=== PATIENT | female | born 1995 | race American Indian/Alaskan Native ===

== ENCOUNTER 2019-01-09 19:02 | Emergency (ER) | payer OTHER ==
--- NOTE | 2019-01-09 19:32 | Event Note ---
ED Screening Note Date of service: 01/09/19 Time: 19:29 ED Screening Note: Patient here reports injury to left 2,3 and 4th finger. Reports larger cut is on middle finger. TD unknown. Injured finger while opening a can. RXT: left middle fingle with deep wound distally and 2nd and 4th finger bowen perficial wound. TTP. Sml bleding. Pulses 2+. normal color and sensation. This initial assessment/diagnostic orders/clinical plan/treatment(s) is/are subject to change based on patients health status, clinical progression and re- assessment by fellow clinical providers in the ED. Further treatment and workup at subsequent clinical providers discretion. Patient/guardian urged not to elope from the ED as their condition may be serious if not clinically assessed and managed. Initial orders include: TD
[2019-01-09] MEDS ORDERED: TETANUS,DIPH,PERTUSS(ACELL) VACCINE 0.5 ML SYRINGE IM ONE (19:34)
--- NOTE | 2019-01-09 20:19 | Emergency Department Report ---
- General Chief Complaint: Laceration/Recheck/Suture Stated Complaint: FINGERS CUT/LAC Time Seen by Provider: 01/09/19 19:28 Source: patient Mode of arrival: Ambulatory Limitations: No Limitations - History of Present Illness Initial Comments: Patient is a 23-year-old female presents emergency room with complaints of a laceration to the left middle and left ring finger that occurred just prior to arrival. She states that she was opening metal can and got cut by the edge of the can. She is unsure of her last tetanus immunization. She is able to move the fingers without difficulty. She denies any numbness or weakness. Patient denies any past medical history or allergies medications. - Related Data Previous Rx's Medication Instructions Recorded Last Taken Type cephALEXin [Keflex] 500 mg PO Q6HR 7 Days #28 capsule 01/09/19 Unknown Rx Allergies Allergy/AdvReac Type Severity Reaction Status Date / Time No Known Allergies Allergy Unverified 01/09/19 19:31 ED Review of Systems ROS: Stated complaint: FINGERS CUT/LAC Other details as noted in HPI Comment: All other systems reviewed and negative ED Past Medical Hx - Past Medical History Previous Medical History?: No - Surgical History Past Surgical History?: No - Social History Smoking Status: Never Smoker Substance Use Type: None - Medications Home Medications: Home Medications Medication Instructions Recorded Confirmed Last Taken Type cephALEXin [Keflex] 500 mg PO Q6HR 7 Days #28 capsule 01/09/19 Unknown Rx ED Physical Exam - General Limitations: No Limitations General appearance: alert, in no apparent distress - Head Head exam: Present: atraumatic, normocephalic - Eye Eye exam: Present: normal appearance - ENT ENT exam: Present: mucous membranes moist - Extremities Exam Extremities exam: Present: other (2 v-shape laceration to the distal, palmar surface of the left middle finger, 1 cm laceration to the left distal, palmar surface of the left ring finger, small abrasion to the distal, palmar surface of the left index finger, no active bleeding, lacerations are superficial, no tedon/muscle involvement, no visualized foreign body, FROM of the left digits without difficulty, neurovascularly intact) - Neurological Exam Neurological exam: Present: alert, oriented X3 - Psychiatric Psychiatric exam: Present: normal affect, normal mood - Skin Skin exam: Present: warm, dry ED Course Vital Signs 01/09/19 21:23 Temperature 98.2 F Pulse Rate 71 Respiratory 16 Rate Blood Pressure 126/74 [Left] O2 Sat by Pulse 100 Oximetry - Laceration /Wound Repair Left Palm Finger Wound Location: upper extremity (distal, palmar surface of left middle and left ring fingers) Wound Length (cm): 2 Wound's Depth, Shape: superficial Wound Explored: no foreign body removed Irrigated w/ Saline (ccs): 100 Betadine Prep?: Yes Anesthesia: 1% Lidocaine Volume Anesthetic (ccs): 10 Wound Repaired With: sutures Suture Size/Type: 4:0, proline Number of Sutures: 5 Layer Closure?: No Sterile Dressing Applied?: Yes Progress: 2 lacerations present, irrigated with saline and scrubbed with Betadine, no tendon or muscle involvement, no foreign body, Betadine prep, sterile gloves worn, sterile dressing applied, 10 mL of 1% lidocaine without epinephrine used for digital block of the left middle finger and left ring finger, skin closure with 4-0 Prolene, 4 sutures placed in the left middle finger, 1 suture placed in the left ring finger, patient tolerated well, no complications, bleeding controlled, sterile dressing applied ED Medical Decision Making - Medical Decision Making Patient is a 23-year-old female presents emergency room with complaints of a laceration to the left middle and left ring finger that occurred just prior to arrival. She states that she was opening metal can and got cut by the edge of the can. She is unsure of her last tetanus immunization. She is able to move the fingers without difficulty. She denies any numbness or weakness. Patient denies any past medical history or allergies medications. VSS. on exam: 2 v- shape laceration to the distal, palmar surface of the left middle finger, 1 cm laceration to the left distal, palmar surface of the left ring finger, small abrasion to the distal, palmar surface of the left index finger, no active bleeding, lacerations are superficial, no tedon/muscle involvement, no visualized foreign body, FROM of the left digits without difficulty, neurovascularly intact. Lacerations irrigated with saline and thoroughly cleaned with Betadine and repaired per procedure note. Patient given tetanus immunization. Advised patient sutures will need to be removed in 7-10 days. please take medication as prescribed. Please keep areas clean, dry, covered. May wash with soap and water and immediately dry. No hot tub, pool, soaking in water. Follow up with a primary care doctor in the next 3-5 days for reexamination. Return to the emergency room for any new or worsening symptoms or any worsening signs of infection despite antibiotic therapy. Critical care attestation.: If time is entered above; I have spent that time in minutes in the direct care of this critically ill patient, excluding procedure time. ED Disposition Clinical Impression: Laceration of fingers without complication Qualifiers: Encounter type: initial encounter Qualified Code(s): S61.219A - Laceration without foreign body of unspecified finger without damage to nail, initial encounter Disposition: - TO HOME OR SELFCARE Is pt being admited?: No Does the pt Need Aspirin: No Condition: Stable Instructions: Suture Care (ED), Laceration (ED) Additional Instructions: Sutures will need to be removed in 7-10 days. please take medication as prescribed. Please keep areas clean, dry, covered. May wash with soap and water and immediately dry. No hot tub, pool, soaking in water. Follow up with a primary care doctor in the next 3-5 days for reexamination. Return to the emergency room for any new or worsening symptoms or any worsening signs of infection despite antibiotic therapy. Prescriptions: cephALEXin [Keflex] 500 mg PO Q6HR 7 Days #28 capsule Referrals: [facility] [Provider Group] - 3-5 Days Time of Disposition: 20:53 Print Language: ANGOLAN
[2019-01-09 21:40] VITALS: BP 126/74
[2019-01-09] MEDS ORDERED: LIDOCAINE (1%) 10 MG/1 ML VIAL 20 ML MDV INFILTRATI ONE (23:12)
== END 2019-01-09 21:26 | disposition home or self-care (01) ==
LOC: ED 19:02
DX: S61.213A Laceration without foreign body of left middle finger without damage to nail, initial encounter (principal); S61.215A Laceration without foreign body of left ring finger without damage to nail, initial encounter; W26.8XXA Contact with other sharp object(s), not elsewhere classified, initial encounter; Y93.89 Activity, other specified; Y92.89 Other specified places as the place of occurrence of the external cause; Y99.8 Other external cause status
CPT/HCPCS: 90471; 90715

== ENCOUNTER 2019-01-30 18:34 | Emergency (ER) | payer OTHER ==
[2019-01-30 19:12] VITALS: BP 131/96
--- NOTE | 2019-01-30 19:16 | Emergency Department Report ---
Suture/Staple Removal - [facility] Chief Complaint: Laceration/Recheck/Suture Stated Complaint: LFT HAND STITCHS REMOVED Time Seen by Provider: 01/30/19 19:14 When Sutures or Demetrio Placed: 11-14 Days Ago Wound Location: left middle and ring finger ED Review of Systems ROS: Stated complaint: LFT HAND STITCHS REMOVED Other details as noted in HPI Constitutional: denies: chills, fever Eyes: denies: eye pain, eye discharge, vision change ENT: denies: ear pain, throat pain Respiratory: denies: cough, shortness of breath, wheezing Cardiovascular: denies: chest pain, palpitations Endocrine: no symptoms reported Gastrointestinal: denies: abdominal pain, nausea, diarrhea Genitourinary: denies: urgency, dysuria, discharge Musculoskeletal: denies: back pain, joint swelling, arthralgia Skin: denies: rash, lesions Neurological: denies: headache, weakness, paresthesias Psychiatric: denies: anxiety, depression Hematological/Lymphatic: denies: easy bleeding, easy bruising ED Past Medical Hx - Social History Smoking Status: Never Smoker Substance Use Type: None - Medications Home Medications: Home Medications Medication Instructions Recorded Confirmed Last Taken Type cephALEXin [Keflex] 500 mg PO Q6HR 7 Days #28 capsule 01/09/19 Unknown Rx Suture Removal Exam - Exam General: Vital signs noted. No distress. Alert and acting appropriately. Wound: No Pathologic Erythema, No Tenderness, No Drainage, No Pus, No Wound De hiscence Other Systems: All other systems reviewed and are unremarkable. ED Course Vital Signs 01/30/19 19:06 Temperature 98.6 F Pulse Rate 78 Respiratory 18 Rate Blood Pressure 131/96 O2 Sat by Pulse 100 Oximetry - Reevaluation(s) Reevaluation #1: 01/30/19 19:16 Patient is speaking in full sentences with no signs of distress noted. ED Recheck MDM - Medical Decision Making Total of 5 sutures removed. Patient tolerated well. normal healing. Patient was instructed to Follow-up with a primary care doctor in 3-5 days or if symptoms worsen and continue return to emergency room as soon as possible. At time of discharge, the patient does not seem toxic or ill in appearance. No acute signs of distress noted. Patient agrees to discharge treatment plan of care. No further questions noted by the patient. Critical care attestation.: If time is entered above; I have spent that time in minutes in the direct care of this critically ill patient, excluding procedure time. ED Disposition Clinical Impression: Encounter for removal of sutures Disposition: DC- TO HOME OR SELFCARE Is pt being admited?: No Does the pt Need Aspirin: No Condition: Stable Instructions: Suture Removal (ED) Additional Instructions: Follow-up with a primary care doctor in 3-5 days or if symptoms worsen and continue return to emergency room as soon as possible. Referrals: PRIMARY MD LEROY [Referring] - 3-5 Days BENITO CATES MD [Staff Physician] - 3-5 Days [facility] [Outside] - 3-5 Days
== END 2019-01-30 19:20 | disposition home or self-care (01) ==
LOC: ED 18:34
DX: S61.412D Laceration without foreign body of left hand, subsequent encounter (principal); Z79.899 Other long term (current) drug therapy; X58.XXXD Exposure to other specified factors, subsequent encounter